=== PATIENT | male | born 1975 | race Caucasian/White ===

== ENCOUNTER 2016-07-08 11:05 | Emergency (ER) | payer MEDICARE | END 2016-07-08 12:41 | disposition home or self-care (01) | LOC: D.ER 11:05 | DX: S93.401A Sprain of unspecified ligament of right ankle, initial encounter (principal); V29.9XXA Motorcycle rider (driver) (passenger) injured in unspecified traffic accident, initial encounter; Y93.89 Activity, other specified; Y92.410 Unspecified street and highway as the place of occurrence of the external cause; S92.411A Displaced fracture of proximal phalanx of right great toe, initial encounter for closed fracture; F32.9 Major depressive disorder, single episode, unspecified; F17.200 Nicotine dependence, unspecified, uncomplicated ==